=== PATIENT | male | born 1930 | race Caucasian/White ===

== ENCOUNTER 2017-10-22 16:14 | Emergency (ER) | payer MEDICARE ==
[2016-05-11 12:25] VITALS: Ht 167.6 cm; Wt 70.3 kg
[~2017-10-22] VITALS: Ht 167.6 cm; Wt 70.3 kg
[~2017-10-22 16:14] MED LIST: ACET-2607 PO; ALKA-SELTZER B324 M2 PO; AMO500 PO; ASPI81TA94 PO; ATOR20TA65 PO; AUG875 PO; CEP500 PO; CEPH-13 PO; CEPH500T7 PO; CLOP75TA PO; CLOP75TA43 PO; CYCL10TA29 PO; GLIP-154 PO; GLY5 PO; HYDR-4308 PO; IBUP200C71 PO; IBUP800T37 PO; LEVO25TA61 PO; LIS10 PO; LOR5/325 PO; LOSA50TA72 PO; MET500 PO; METH4TAB66 PO; METO25TA93 PO; SULF-198 PO; TRAM-420 PO; TRAZ-156 PO
--- NOTE | 2017-10-22 16:32 | ER Report ---
History and Physical Time Seen By MD: 16:41 Hx. of Stated Complaint: STATES BS HAS BEEN ELEVATED AND HE THINKS MEDS ARE NOT WORKING HPI/ROS Patient is a type II diabetic last saw his provider in August she is in [facility] and has a hard time getting there his A1c was last 8.1 he thought this was very high wanted to adjust his oral dose of medications he is now on metformin 1000 twice a day and glipizide 10 twice a day Allergies: Coded Allergies: No Known Drug Allergies (Verified , 10/22/17) Home Meds Reported Medications Levothyroxine Sodium (LEVOTHYROXINE SODIUM) 25 Mcg Tablet, 25 MCG PO QDAY 09/02/17 Clopidogrel Bisulfate (PLAVIX) 75 Mg Tablet, 1 TAB PO QDAY, TAB 12/24/15 Aspirin (ASPIRIN) 81 Mg Tab.chew, 81 MG PO QDAY, TAB.CHEW 12/24/15 Glipizide (GLIPIZIDE) 10 Mg Tablet, 10 MG PO BID 10/07/15 Metoprolol Tartrate (METOPROLOL TARTRATE) 25 Mg Tablet, 1 TAB PO BID, TAB 11/04/14 Atorvastatin Calcium (ATORVASTATIN CALCIUM) 20 Mg Tablet, 1 TAB PO QDAY, TAB TAKE ONE TABLET BY MOUTH ONCE A DAY AT BED TIME 11/04/14 Acetaminophen (ACETAMINOPHEN 8 HOUR) 650 Mg Tablet.er, 650 MG PO Q8H, TAB 03/03/14 Metformin Hcl (Glucophage) 500 Mg Tab, 1000 MG PO BID, 0 Refills 06/28/11 Discontinued Scripts Cephalexin 500 Mg Tab (KEFLEX 500 MG TAB) 500 Mg Tablet, 500 MG PO Q6H, #28 TAB Prov:JEAN-CLAUDE BUTCHER PA-C 09/02/17 Past Medical/Surgical History Hypertension, type II diabetes Reviewed Nurses Notes: Yes Old Medical Records Reviewed: Yes Hx Smoking: No Smoking Status: Former Smoker Exposure to Second Hand Smoke?: No Hx Substance Use Disorder: No Hx Alcohol Use: No Family History of: Diabetes Constitutional Vital Sign - Last 24 Hours 10/22/17 10/22/17 10/22/17 10/22/17 16:22 16:30 17:00 17:29 Temp 97.8 Pulse 78 65 78 Resp 20 B/P (MAP) 139/89 134/79 (97) 130/87 (101) 136/81 (99) Pulse Ox 94 94 94 Physical Exam Pleasant 86-year-old gentleman heent has normocephalic/atraumatic tympanic membranes are non-reddened throat is non-reddened neck is supple no JVD heart rate is regular no murmurs rubs or gallops lungs clear to auscultation abdomen soft bowel sounds 4 quadrants moves all extremities Medical Decision Making Data Points Result Diagram: 10/22/17 1630 10/22/17 1630 Laboratory Hematology Test 10/22/17 16:30 10/22/17 17:00 Red Blood Count 4.70 M/uL (4.00-5.60) Mean Corpuscular Volume 91.7 fL (80.0-96.0) Mean Corpuscular Hemoglobin 31.2 pg (26.0-33.0) Mean Corpuscular Hemoglobin Concent 34.0 g/dL (32.0-36.0) Red Cell Distribution Width 13.5 % (11.5-14.5) Mean Platelet Volume 8.7 fL (7.2-11.1) Neutrophils (%) (Auto) 65.0 % (39.4-72.5) Lymphocytes (%) (Auto) 21.7 % (17.6-49.6) Monocytes (%) (Auto) 12.4 % (4.1-12.4) Eosinophils (%) (Auto) 0.5 % (0.4-6.7) Basophils (%) (Auto) 0.4 % (0.3-1.4) Nucleated RBC Relative Count (auto) 0.0 /100WBC Neutrophils # (Auto) 5.0 K/uL (2.0-7.4) Lymphocytes # (Auto) 1.7 K/uL (1.3-3.6) Monocytes # (Auto) 1.0 K/uL (0.3-1.0) Eosinophils # (Auto) 0.0 K/uL (0.0-0.5) Basophils # (Auto) 0.0 K/uL (0.0-0.1) Nucleated RBC Absolute Count (auto) 0.00 K/uL Sodium Level 136 mmol/L (137-145) Potassium Level 4.6 mmol/L (3.5-5.0) Chloride Level 103 mmol/L (98-107) Carbon Dioxide Level 19 mmol/L (22-30) Blood Urea Nitrogen 36 mg/dl (9-21) Creatinine 1.10 mg/dl (0.66-1.25) Glomerular Filtration Rate Calc > 60.0 Random Glucose 170 mg/dl (75-110) Calcium Level 9.8 mg/dl (8.4-10.2) Total Bilirubin 0.6 mg/dl (0.2-1.3) Aspartate Amino Transf (AST/SGOT) 24 U/L (0-35) Alanine Aminotransferase (ALT/SGPT) 32 U/L (0-56) Alkaline Phosphatase 99 U/L (0-126) Total Protein 8.1 gm/dl (6.3-8.2) Albumin 4.7 g/dl (3.5-5.0) Urine Color Yellow Urine Clarity Clear Urine pH 5.0 pH (4.8-9.5) Urine Specific [place] 1.020 Urine Protein 30 mg/dL (NEGATIVE) Urine Glucose (UA) Negative mg/dL (NEGATIVE) Urine Ketones Negative mg/dL (NEGATIVE) Urine Blood Negative (NEGATIVE) Urine Nitrite Negative (NEGATIVE) Urine Bilirubin Negative (NEGATIVE) Urine Urobilinogen Negative mg/dL (0.2-1.9) Urine Leukocyte Esterase Negative (NEGATIVE) Urine RBC 1 /HPF (0-2/HPF) Urine WBC 2 /HPF (0-5/HPF) Urine Squamous Epithelial Cells Few /LPF (</=FEW) Urine Bacteria Negative /HPF (NONE-FEW) Urine Hyaline Casts Few /LPF (NONE-FEW) Urine Mucus None /HPF (NONE-FEW) Chemistry Test 10/22/17 16:30 10/22/17 17:00 White Blood Count 7.7 k/uL (4.5-11.0) Red Blood Count 4.70 M/uL (4.00-5.60) Hemoglobin 14.7 g/dL (14.0-18.0) Hematocrit 43.1 % (42.0-52.0) Mean Corpuscular Volume 91.7 fL (80.0-96.0) Mean Corpuscular Hemoglobin 31.2 pg (26.0-33.0) Mean Corpuscular Hemoglobin Concent 34.0 g/dL (32.0-36.0) Red Cell Distribution Width 13.5 % (11.5-14.5) Platelet Count 242 K/uL (150-450) Mean Platelet Volume 8.7 fL (7.2-11.1) Neutrophils (%) (Auto) 65.0 % (39.4-72.5) Lymphocytes (%) (Auto) 21.7 % (17.6-49.6) Monocytes (%) (Auto) 12.4 % (4.1-12.4) Eosinophils (%) (Auto) 0.5 % (0.4-6.7) Basophils (%) (Auto) 0.4 % (0.3-1.4) Nucleated RBC Relative Count (auto) 0.0 /100WBC Neutrophils # (Auto) 5.0 K/uL (2.0-7.4) Lymphocytes # (Auto) 1.7 K/uL (1.3-3.6) Monocytes # (Auto) 1.0 K/uL (0.3-1.0) Eosinophils # (Auto) 0.0 K/uL (0.0-0.5) Basophils # (Auto) 0.0 K/uL (0.0-0.1) Nucleated RBC Absolute Count (auto) 0.00 K/uL Glomerular Filtration Rate Calc > 60.0 Calcium Level 9.8 mg/dl (8.4-10.2) Total Bilirubin 0.6 mg/dl (0.2-1.3) Aspartate Amino Transf (AST/SGOT) 24 U/L (0-35) Alanine Aminotransferase (ALT/SGPT) 32 U/L (0-56) Alkaline Phosphatase 99 U/L (0-126) Total Protein 8.1 gm/dl (6.3-8.2) Albumin 4.7 g/dl (3.5-5.0) Urine Color Yellow Urine Clarity Clear Urine pH 5.0 pH (4.8-9.5) Urine Specific [place] 1.020 Urine Protein 30 mg/dL (NEGATIVE) Urine Glucose (UA) Negative mg/dL (NEGATIVE) Urine Ketones Negative mg/dL (NEGATIVE) Urine Blood Negative (NEGATIVE) Urine Nitrite Negative (NEGATIVE) Urine Bilirubin Negative (NEGATIVE) Urine Urobilinogen Negative mg/dL (0.2-1.9) Urine Leukocyte Esterase Negative (NEGATIVE) Urine RBC 1 /HPF (0-2/HPF) Urine WBC 2 /HPF (0-5/HPF) Urine Squamous Epithelial Cells Few /LPF (</=FEW) Urine Bacteria Negative /HPF (NONE-FEW) Urine Hyaline Casts Few /LPF (NONE-FEW) Urine Mucus None /HPF (NONE-FEW) Urinalysis Test 10/22/17 17:00 Urine Color Yellow Urine Clarity Clear Urine pH 5.0 pH (4.8-9.5) Urine Specific [place] 1.020 Urine Protein 30 mg/dL (NEGATIVE) Urine Glucose (UA) Negative mg/dL (NEGATIVE) Urine Ketones Negative mg/dL (NEGATIVE) Urine Blood Negative (NEGATIVE) Urine Nitrite Negative (NEGATIVE) Urine Bilirubin Negative (NEGATIVE) Urine Urobilinogen Negative mg/dL (0.2-1.9) Urine Leukocyte Esterase Negative (NEGATIVE) Urine RBC 1 /HPF (0-2/HPF) Urine WBC 2 /HPF (0-5/HPF) Urine Squamous Epithelial Cells Few /LPF (</=FEW) Urine Bacteria Negative /HPF (NONE-FEW) Urine Hyaline Casts Few /LPF (NONE-FEW) Urine Mucus None /HPF (NONE-FEW) ED Course/Re-evaluation Clinical Indication for ER IV: Hydration ED Course She went was slightly elevated given 500 mL of normal saline for this and will increase his glipizide 20 mg twice a day known max dose glipizide is 40 mg have him follow-up with his primary care provider for further evaluation treatment Re-evaluation Feeling better after treatment will follow up with primary care provider for further evaluation Decision to Disposition Date: Oct 22, 2017 Decision to Disposition Time: 17:24 Depart Departure Latest Vital Signs Vital Signs Date Time Temp Pulse Resp B/P (MAP) Pulse Ox O2 Delivery O2 Flow Rate FiO2 10/22/17 17:29 136/81 (99) 94 10/22/17 17:00 78 10/22/17 16:22 97.8 20 Impression: Primary Impression: Type II diabetes mellitus Additional Impressions: Hyperglycemia Dehydration Condition: Improved Disposition: HOME OR SELF-CARE Referrals: BRENNAN VILLALPANDO (PCP) 5 Days Patient Instructions: Diabetic Hyperglycemia (ED), Type 2 Diabetes in Adults ( ED) Additional Instructions: Glipizide 10 mg 2 pills twice a day prescription given follow-up with your primary care physician Problem Qualifiers BELTRAN THOMPSON Oct 22, 2017 16:32
[2017-10-22 16:49] LABS: PLATELET COUNT, AUTOMATED 242 K/uL (150-450)
[2017-10-22] MEDS ORDERED: NS(*) 0.9% 500 ML BAG 500 ML IV ONE (17:00)
[2017-10-22] MEDS ORDERED: GLIP-154 PO (17:15)
[2017-10-22 17:29] VITALS: BP 136/81
== END 2017-10-22 17:52 | disposition home or self-care (01) ==
LOC: ER 16:50
DX: E11.65 Type 2 diabetes mellitus with hyperglycemia (principal); E86.0 Dehydration
CPT/HCPCS: 81001; 85025; 96360; 99284; J7040; 82040; 82247; 82310; 82374; 82435; 82565; 82947; 84075; 84132; 84155; 84295; 84450; 84460; 84520

== ENCOUNTER 2017-12-25 15:15 | Outpatient (RCR) | payer MEDICARE ==
[2016-05-11 12:25] VITALS: BMI 24.5
--- NOTE | 2017-11-27 15:57 | PT INITIAL EVALUATION ---
MEDICAL DIAGNOSIS: Hip pain, low back pain TREATMENT DIAGNOSIS: same DATE OF ONSET: [birth year] SUBJECTIVE: Ant presents to physical therapy with complaints of L hip pain along with low back pain that started approximately 30 years. He reports that the pain has been off and on. He reports that usually he can get the pain to go away in a week utilizing a lumbar support, however, this time the pain has stuck around for 2 weeks. He reports that the pain is worse with bending, standing, in the am, and walking. He reports that the pain is better with sitting, as the day progresses, and lying. He denies abnormal gait or bladder control. He denies the following symptoms: night pain, unexplained weight loss , recent surgery, or recent accidents. He reports that he had an xray 1 week ago on his hip and he reports that things look good. Pain location is L2-5 spinous process to L facet joint with radiating pain to L lateral hip and described as burning, achy. Pain scale is 3 on a ten point pain scale. REHAB PROBLEM LIST: increased pain, decreased strength, decreased range of motion PREVIOUS MEDICAL HISTORY: See EMR OCCUPATION: Retired OBJECTIVE: Posture: He demonstrated increased forward head, increased thoracic kyphosis, increased B rounded shoulders, and decreased lumbar lordosis. He did not demonstrate any R or L lateral shift. ROM: Trunk AROM: flexion: NIL with muscular end feel. extension: NIL with muscular end feel. sidegliding R: NIL with painful end feel. sidegliding L: NIL with normal end feel. Strength: Core, B LE's: 4+/5 with minimal pain with B hip flexion Palpation: TTP: L2-5 spinous process to L facet joint with radiating pain to L lateral hip Sensation: Intact Special Tests: Repeated extension: pain during test and more centralized following the test with increased pain. Repeated extension with manual pressure : pain during the test and more centralized following the test with increased pain. Repeated flexion: pain during the test and more peripheralized pain following the test, however, the pain was decreased. Mobility: Independent Gait: No gait deviations were noted ASSESSMENT: Ant will benefit from skilled physical therapy to address the listed impairments to improve function and QOL. Based on his examination, his signs and symptoms are consistent with the provisional classification of posterior derangement that responded well to extension based principles. Short Term Goals 2 weeks: Pt will demonstrate centralized low back pain to improve function and QOL. 4 weeks: Pt will demonstrate abolished low back pain to improve function and QOL. 6 weeks: Pt will demonstrate a return to prior level of function to improve QOL. Patient's Goals reduce low back pain PLAN: Patient to be seen for Manual Therapy/STM/MET Strengthening/condition Range of Motion Spinal Stabilization Work Hardening/Cond Stretching Neuromuscular Re-ed Closed Chain Program Posture/Body mechanics Home Exercise Program Therapeutic Activities 2x/Week for 6 Weeks If you have any questions, comments, or concerns about this report or plan, please contact me at . Thank you, Jeremy Robert, PT, DPT MTDD
--- NOTE | 2017-12-25 16:17 | PT PLAN OF CARE ---
Physician: KRISTIN Jones Patient is being seen: 1-2x/week Therapist: Jeremy Robert, PT, DPT Medical Diagnosis: Hip pain, low back pain Treatment Diagnosis: same Date of Onset: [birth year] Date of Initial Evaluation: 11/27/17 Date patient was last seen: 12/25/17 Number of treatments: 7 Number of cancellations/No shows: 1 INTERVENTIONS: Patient to be seen for Manual Therapy/STM/MET Strengthening/condition Range of Motion Spinal Stabilization Work Hardening/Cond Stretching Neuromuscular Re-ed Closed Chain Program Posture/Body mechanics Home Exercise Program Therapeutic Activities Short Term Goals 2 weeks: Pt will demonstrate centralized low back pain to improve function and QOL. MET 4 weeks: Pt will demonstrate abolished low back pain to improve function and QOL. Progressing toward; will meet soon 6 weeks: Pt will demonstrate a return to prior level of function to improve QOL. MET Patient's Goals reduce low back pain: MET Status of Patient's Goals: Progressed well; will meet Patient Compliance: Good Prognosis: Reasons for continuing therapy: This is a discharge note for Beto Bolaños. He reports that he is doing better. He reports that he continues to perform his specific exercise with good results. He reports that he performs the exercise as much as possible. He denies any low back or hip pain today. He reports that he is able to go days without taking his over the counter medications. He feels like he has improved a bunch and feels like he can continue his exercise on his own to make full recovery. He demonstrates improved trunk AROM in all directions , improved end feels with trunk motions in all directions, centralized low back pain, and independent on his posture and specific exercise. I believe that he will continue to perform specific exercise and his pain will be fully abolished if he continues his posture and specific exercise as prescribed based on his improvements and his directional preference observed in PT. As a result of being fully independent, he will be discharged from PT. OBJECTIVE: Posture: He demonstrated increased forward head, increased thoracic kyphosis, increased B rounded shoulders, and decreased lumbar lordosis. He did not demonstrate any R or L lateral shift. ROM: Trunk AROM: flexion: NIL with muscular end feel. extension: NIL with muscular end feel. sidegliding R: NIL with normal feel. sidegliding L: NIL with normal end feel. Strength: Core, B LE's: 4+/5 with minimal pain with B hip flexion Sensation: Intact Mobility: Independent Gait: No gait deviations were noted If you have any questions, comments, or concerns about this report or plan, please contact me at . Thank you, Jeremy Robert, PT, DPT [place]IG[place]
== END 2017-12-25 18:00 | disposition home or self-care (01) ==
LOC: PT 15:15
PROVIDERS: ATTEND Nurse Practitioner Family
DX: M25.552 Pain in left hip (principal); M54.5 Low back pain
CPT/HCPCS: 97162

== ENCOUNTER 2018-06-20 16:34 | Emergency (ER) | payer MEDICARE ==
[2016-05-11 12:25] VITALS: Wt 70.3 kg
[~2018-06-20 16:34] MED LIST changes: +IBUP-136 PO; -IBUP200C71 PO; -LOSA50TA72 PO; +LOSA50TA74 PO; -TRAZ-156 PO; +TRAZ50TA34 PO
--- NOTE | 2018-06-20 17:01 | ER Report ---
History and Physical Time Seen By MD: 16:50 Hx. of Stated Complaint: PATIENT REPORTS THAT HE HAS BEEN HAVING LEG CRAMPS OFF AND ON FOR 30 YEARS. HE REPORTS THAT HE JUST WANTS A PRESCRIPTION FOR THE LEG CRAMPS. HE REPORTS THAT HIS LEGS ARE NOT CRAMPING RIGHT NOW BUT USUALLY IN THE MORNING HPI/ROS CHIEF COMPLAINT: Leg cramps HISTORY OF PRESENT ILLNESS: Patient is a 87-year-old male, diabetic, who was increased this month on his metformin 5 500 mg. States he has not had recent blood draw. Patient states that he has had intermittent leg cramps in bilateral lower legs. States that while these have been going on intermittently for years and years, he has had difficulty completely ridding himself or cramps. Patient d oes say that usually and recently he has been able to walk off the cramps by walking laps around the house. Patient denies symptoms currently. Patient denies new swelling in legs or recent travel. Patient has no chest pain, shortness breath, fevers, chills. Patient does note that he probably does not intake sufficient water. Patient denies drinking alcohol. Patient does not admit to other medications. REVIEW OF SYSTEMS: Constitutional: No fever, no chills. Eyes: No discharge. ENT: No sore throat. Cardiovascular: No chest pain, no palpitations. Respiratory: No cough, no shortness of breath. Gastrointestinal: No abdominal pain, no vomiting. Genitourinary: No hematuria. Musculoskeletal: chronic mild low back pain Skin: No rashes. Neurological: No headache. Remainder of the 14 system rev: Yes Allergies: Coded Allergies: No Known Drug Allergies (Verified , 10/22/17) Home Meds Reported Medications Levothyroxine Sodium (LEVOTHYROXINE SODIUM) 25 Mcg Tablet, 25 MCG PO QDAY 09/02/17 Clopidogrel Bisulfate (PLAVIX) 75 Mg Tablet, 1 TAB PO QDAY, TAB 12/24/15 Aspirin (ASPIRIN) 81 Mg Tab.chew, 81 MG PO QDAY, TAB.CHEW 12/24/15 Glipizide (GLIPIZIDE) 10 Mg Tablet, 10 MG PO BID 10/07/15 Metoprolol Tartrate (METOPROLOL TARTRATE) 25 Mg Tablet, 1 TAB PO BID, TAB 11/04/14 Atorvastatin Calcium (ATORVASTATIN CALCIUM) 20 Mg Tablet, 1 TAB PO QDAY, TAB TAKE ONE TABLET BY MOUTH ONCE A DAY AT BED TIME 11/04/14 Acetaminophen (ACETAMINOPHEN 8 HOUR) 650 Mg Tablet.er, 650 MG PO Q8H, TAB 03/03/14 Metformin Hcl (Glucophage) 500 Mg Tab, 1000 MG PO BID, 0 Refills 06/28/11 Hx Smoking: No Smoking Status: Former Smoker Exposure to Second Hand Smoke?: No Hx Substance Use Disorder: No Hx Alcohol Use: No Constitutional Vital Sign - Last 24 Hours 06/20/18 16:40 Temp 97.9 Pulse 85 Resp 20 B/P (MAP) 147/90 Pulse Ox 93 O2 Delivery Room Air Physical Exam General Appearance: The patient is alert, has no immediate need for airway protection and no signs of toxicity. [ ] Eyes: Pupils equal and round no pallor or injection. ENT, Mouth: Mucous membranes are moist. Respiratory: There are no retractions, lungs are clear to auscultation. Cardiovascular: Regular rate and rhythm. [ ] Gastrointestinal: Abdomen is soft and non tender, no masses, bowel sounds normal. Neurological: alert, oriented, comfortable, nad Skin: Warm and dry, no rashes. Musculoskeletal: Neck is supple non tender. Extremities are nontender, nonswollen and have full range of motion. There is no e/o muscle spasm or ttp [ ] DIFFERENTIAL DIAGNOSIS: After history and physical exam differential diagnosis was considered for electrolyte, rhabdo, medication reaction, or other emergent etiology Medical Decision Making Data Points Result Diagram: 06/20/18 1712 Laboratory Hematology Test 06/20/18 17:12 Sodium Level 137 mmol/L (137-145) Potassium Level 4.6 mmol/L (3.5-5.0) Chloride Level 102 mmol/L (98-107) Carbon Dioxide Level 24 mmol/L (22-30) Blood Urea Nitrogen 30 mg/dl (9-21) Creatinine 1.00 mg/dl (0.66-1.25) Glomerular Filtration Rate Calc > 60.0 Random Glucose 266 mg/dl (75-110) Calcium Level 9.2 mg/dl (8.4-10.2) Total Bilirubin 0.4 mg/dl (0.2-1.3) Aspartate Amino Transf (AST/SGOT) 18 U/L (0-35) Alanine Aminotransferase (ALT/SGPT) 31 U/L (0-56) Alkaline Phosphatase 83 U/L (0-126) Total Creatine Kinase 159 U/L (55-170) Total Protein 6.9 g/dl (6.3-8.2) Albumin 4.0 g/dl (3.5-5.0) Chemistry Test 06/20/18 17:12 Glomerular Filtration Rate Calc > 60.0 Calcium Level 9.2 mg/dl (8.4-10.2) Total Bilirubin 0.4 mg/dl (0.2-1.3) Aspartate Amino Transf (AST/SGOT) 18 U/L (0-35) Alanine Aminotransferase (ALT/SGPT) 31 U/L (0-56) Alkaline Phosphatase 83 U/L (0-126) Total Creatine Kinase 159 U/L (55-170) Total Protein 6.9 g/dl (6.3-8.2) Albumin 4.0 g/dl (3.5-5.0) ED Course/Re-evaluation ED Course Pt presents with ongoing chronic leg cramps. He has none now. While it does not initially. At this is an emergent condition, patient was recently in creased in his metformin dose so will evaluate for electrolyte abnormalities, rhabdo, glucose level. Labs unremarkable with the exception of hyperglycemia. Patient informed, we'll give muscle relaxant and recommend close follow-up and reevaluation. Decision to Disposition Date: Jun 20, 2018 Decision to Disposition Time: 17:58 Depart Departure Latest Vital Signs Vital Signs Date Time Temp Pulse Resp B/P (MAP) Pulse Ox O2 Delivery O2 Flow Rate FiO2 06/20/18 16:40 97.9 85 20 147/90 93 Room Air Impression: Primary Impression: Muscle cramps Additional Impression: Hyperglycemia Condition: Improved Disposition: HOME OR SELF-CARE Referrals: BRENNAN VILLALPANDOP-C (PCP) New Scripts Cyclobenzaprine Hcl (CYCLOBENZAPRINE HCL) 10 Mg Tablet 10 MG PO Q8H PRN for MUSCLE SPASMS, #20 TAB 0 Refills Prov: JACQUE MOTLEY MD 06/20/18 Problem Qualifiers JACQUE MOTLEY MD Jun 20, 2018 17:01
[2018-06-20 18:00] VITALS: BP 115/69
[2018-06-20] MEDS ORDERED: CYCL10TA29 PO (18:00)
== END 2018-06-20 18:14 | disposition home or self-care (01) ==
LOC: ER 16:52
DX: R25.2 Cramp and spasm (principal); E11.65 Type 2 diabetes mellitus with hyperglycemia
CPT/HCPCS: 36415; 82040; 82247; 82310; 82374; 82435; 82550; 82565; 82947; 84075; 84132; 84155; 84295; 84450; 84460; 84520; 99282

== ENCOUNTER 2018-11-25 17:10 | Emergency (ER) | payer MEDICARE ==
[2016-05-11 12:25] VITALS: Wt 70.3 kg
[~2018-11-25 17:10] MED LIST changes: -HYDR-4308 PO; +HYDR-654 PO; -LOSA50TA74 PO; +LOSA50TA80 PO
--- NOTE | 2018-11-25 17:14 | ER Report ---
History and Physical Time Seen By MD: 17:13 HPI/ROS CHIEF COMPLAINT: Elevated blood sugar HISTORY OF PRESENT ILLNESS: This is an 88-year-old male presents to emergency department for elevated blood sugar. Patient states that he checked his blood sugar home, noted to be over 300, became concerned decided come into the year for further evaluation. Patient states that he's been working with his primary care provider in [place] for blood sugar problems over the last couple months, they did increase his metformin to 2500 mg daily, patient states that it's also causing some GI irritation. He has no other complaints. No insatiable thirst or difficult these with urination, frequent urination, aches, chills, nausea, vomiting, diarrhea, chest pain or shortness of breath. The blood sugar measurements here was 194. I discussed this with the patient, stated that it could be the monitor metastases causing some erroneous readings. REVIEW OF SYSTEMS: Constitutional: No fever, no chills. Eyes: No discharge. ENT: No sore throat. Cardiovascular: No chest pain, no palpitations. Respiratory: No cough, no shortness of breath. Gastrointestinal: No abdominal pain, no vomiting. Genitourinary: No hematuria. Musculoskeletal: No back pain. Skin: No rashes. Neurological: No headache. Allergies: Coded Allergies: No Known Drug Allergies (Verified , 11/25/18) Home Meds Reported Medications Metformin Hcl (METFORMIN HCL) 500 Mg Tablet, 3 TAB PO HS, TAB 11/25/18 Levothyroxine Sodium (LEVOTHYROXINE SODIUM) 25 Mcg Tablet, 25 MCG PO QDAY 09/02/17 Clopidogrel Bisulfate (PLAVIX) 75 Mg Tablet, 1 TAB PO QDAY, TAB 12/24/15 Glipizide (GLIPIZIDE) 10 Mg Tablet, 20 MG PO BID 10/07/15 Metoprolol Tartrate (METOPROLOL TARTRATE) 25 Mg Tablet, 1 TAB PO BID, TAB 11/04/14 Atorvastatin Calcium (ATORVASTATIN CALCIUM) 20 Mg Tablet, 1 TAB PO QDAY, TAB TAKE ONE TABLET BY MOUTH ONCE A DAY AT BED TIME 11/04/14 Acetaminophen (ACETAMINOPHEN 8 HOUR) 650 Mg Tablet.er, 650 MG PO Q8H, TAB 03/03/14 Metformin Hcl (Glucophage) 500 Mg Tab, 1000 MG PO DAILY, 0 Refills 06/28/11 Discontinued Reported Medications Aspirin (ASPIRIN) 81 Mg Tab.chew, 81 MG PO QDAY, TAB.CHEW 12/24/15 Discontinued Scripts Cyclobenzaprine Hcl (CYCLOBENZAPRINE HCL) 10 Mg Tablet, 10 MG PO Q8H PRN for MUSCLE SPASMS, #20 TAB 0 Refills Prov:JACQUE MOTLEY MD 06/20/18 Past Medical/Surgical History The patient has a past medical and surgical history of TIAs, cardiac stent, hypertension, hemorrhoids, arthritis, spinal stenosis, wears glasses, type II diabetes. Reviewed Nurses Notes: Yes Hx Smoking: No Smoking Status: Former Smoker Exposure to Second Hand Smoke?: No Hx Substance Use Disorder: No Hx Alcohol Use: No Constitutional Vital Sign - Last 24 Hours 11/25/18 17:16 Temp 97.9 Pulse 60 Resp 16 B/P (MAP) 151/69 Pulse Ox 91 O2 Delivery Room Air Physical Exam General Appearance: The patient is alert, has no immediate need for airway protection and no signs of toxicity. Eyes: Pupils equal and round no pallor or injection. ENT, Mouth: Mucous membranes are moist. Respiratory: There are no retractions, lungs are clear to auscultation. Cardiovascular: Regular rate and rhythm. Gastrointestinal: Abdomen is soft and non tender, no masses, bowel sounds normal. Skin: Warm and dry, no rashes. Musculoskeletal: Neck is supple non tender. Extremities are nontender, nonswollen and have full range of motion. DIFFERENTIAL DIAGNOSIS: After history and physical exam differential diagnosis was considered for diabetic problems. Medical Decision Making ED Course/Re-evaluation ED Course The patient was admitted to room. A history and physical were obtained. Differential diagnoses were considered. The patient's blood sugar on our bedside glucometer was 194, patient states his blood sugar at home was over 300. Patient has no other complaints at this time other then a little GI upset from changing his metformin regimen. Patient declined any other laboratory studies or interventions at this time. I did recommend that the patient follows up with his primary care provider and they can discuss alternatives to metformin. I also recommended recalibration of his, or getting a new glucometer. I also recommend ed following up with outreach educator and the diabetes clinic here at the hospital. Patient expressed understanding, he was also sent home with a list of local providers as his current provider is in [facility]. The patient had no other questions or concerns at this time and was discharged home. 11/25/2018 5:42:14 pm the patient declined additional laboratory studies such as CBC and CMP. No additional testing or request at this time. Decision to Disposition Date: Nov 25, 2018 Decision to Disposition Time: 17:36 Depart Departure Latest Vital Signs Vital Signs Date Time Temp Pulse Resp B/P (MAP) Pulse Ox O2 Delivery O2 Flow Rate FiO2 11/25/18 17:16 97.9 60 16 151/69 91 Room Air Impression: Primary Impression: Type II diabetes mellitus Condition: Improved Disposition: HOME OR SELF-CARE Referrals: BRENNAN VILLALPANDO (PCP) SARA HAWKINS 5 Days Patient Instructions: Type 2 Diabetes in Adults (ED) Additional Instructions: Please follow up with your primary care provider, the diabetes clinic at the hospital or establish with a new PCP within one week. You may need to switch from metformin to a long acting injectable medication for your diabetes. Please have your monitor calibrated or consider a new monitor, this could also be contributing to abnormally high readings, although your A1c was still elevated. If you change your mind about blood work done in the ED you can return for reevaluation. Return to the ED for any other concerns or worsening symptoms. Problem Qualifiers Primary Impression: Type II diabetes mellitus Diabetes mellitus fdc insulin use: unspecified roasterman insulin use status Diabetes mellitus complication status: without complication Qualified Codes: E11.9 - Type 2 diabetes mellitus without complications GERDA [id number] Nov 25, 2018 17:14
[2018-11-25 17:16] VITALS: BP 151/69
[2018-11-25] MEDS ORDERED: METF-450 PO (17:25)
== END 2018-11-25 17:57 | disposition home or self-care (01) ==
LOC: ER 17:46
DX: E11.65 Type 2 diabetes mellitus with hyperglycemia (principal)
CPT/HCPCS: 99281